=== PATIENT | female | born 1950 | race Caucasian/White ===

== ENCOUNTER 2018-10-22 08:34 | Day surgery (SDC) | payer MEDICARE, OTHER ==
[~2018-10-22 08:34] MED LIST: Lactated Ringers 1,000 ML IV SCH
[2018-10-22] MEDS ORDERED: Propofol 200 MG/20 ML SDV ONE ×2 (09:43→10:04)
[2018-10-22] MEDS ORDERED: fentaNYL 100 MCG/2 ML SDV ONE (09:43)
--- NOTE | 2018-10-22 11:47 | OR ---
PREOPERATIVE DIAGNOSIS: Left lower quadrant pain and probable colitis. POSTOPERATIVE DIAGNOSIS: Left lower quadrant pain and probable colitis. PROCEDURE PERFORMED: Colonoscopy. INDICATION: The patient is a 68-year-old female with history of left lower quadrant pain and symptoms of colitis. She had a CT scan earlier, which showed evidence of some colitis, presents for colonoscopy for further evaluation. PROCEDURE IN DETAIL: This was done in the endoscopy suite. Sedation was given per Anesthesia. She was placed in left lateral position. First, a rectal exam was done, was normal. Scope was introduced into the rectum and slowly advanced to the rectum, sigmoid, descending, transverse, and ascending colon until the cecum was reached. Upon reaching the cecum, scope was slowly withdrawn looking all mucosal surfaces on the way out. No mucosal abnormalities, lesions, or polyps were noted. FINAL DIAGNOSIS: Normal colonoscopy. BKD: 10/22/2018 10:49:13 MODL: 10/22/2018 11:41:28 /[id number]
== END 2018-10-22 14:00 | disposition home or self-care (01) ==
LOC: VM.SDS 08:34
PROVIDERS: ATTEND Surgery
DX: R10.32 Left lower quadrant pain (principal); E66.01 Morbid (severe) obesity due to excess calories; Z68.39 Body mass index [BMI] 39.0-39.9, adult; K21.9 Gastro-esophageal reflux disease without esophagitis; Z79.899 Other long term (current) drug therapy; Z88.8 Allergy status to other drugs, medicaments and biological substances
CPT/HCPCS: 00812; 82962; J2704; J3010; J7120

== ENCOUNTER 2019-01-19 17:21 | Emergency (ER) | payer MEDICARE, OTHER ==
[2019-01-19] MEDS ORDERED: cloNIDine 0.1 MG Tab PO ONE (17:47)
[2019-01-19] MEDS ORDERED: Sodium Chloride 0.9% 1,000 ML IV ONE (17:47)
--- NOTE | 2019-01-19 17:50 | EDM.PDOC ---
ED HPI GENERAL MEDICAL PROBLEM - General Chief Complaint: General Stated Complaint: BLOOD PRESSURE ISSUES Time Seen by Provider: 01/19/19 17:35 Source of Information: Reports: Patient, RN History Limitations: Reports: No Limitations - History of Present Illness INITIAL COMMENTS - FREE TEXT/NARRATIVE: Patient comes in the emergency department with complaint of hypertension. Patient states that she has had an increase in blood pressure over the course the last 3-4 days. She had a nerve block conducted on on her lower back in 6 different spots. She states since then she's had a headache and issues with her blood pressure. She states "I just don't feel". Proximal a month ago she had stopped her metformin for was causing significant diarrhea. She is to follow-up with her v belt builder for further management however that appointment was canceled and she is still waiting to get back in to see her. She is also concerned that her blood sugar may be elevated. The patient's blood pressure normally runs systolically in the 120s systolically in the 60s Onset: Gradual Severity: Mild Improves with: Reports: None Worsens with: Reports: None Associated Symptoms: Reports: Headaches, Loss of Appetite, Malaise Headache Pain Score (Numeric/FACES): 7 - Related Data Allergies Allergy/AdvReac Type Severity Reaction Status Date / Time droperidol Allergy Anxiety Verified 01/19/19 17:40 metoclopramide [From Reglan] Allergy Anxiety Verified 01/19/19 17:40 phenoxybenzamine Allergy Anaphylactic Verified 01/19/19 17:40 [From Dibenzyline] Shock verapamil Allergy Other Verified 01/19/19 17:40 Home Meds: Home Meds Estradiol [Estrace] 0.5 mg PO DAILY 10/18/18 [History] Nitroglycerin [Nitrostat] 0.4 mg SL ASDIRECTED 10/18/18 [History] Cholecalciferol (Vitamin D3) [D-1999] 2,000 unit PO TID 01/19/19 [History] Cholestyramine/Sucrose [Cholestyramine Packet] 4 gm PO TID 01/19/19 [History] Dicyclomine [Bentyl] 10 mg PO TID 01/19/19 [History] L.acidoph,Paracasei, B.lactis [Probiotic] 1 each PO DAILY 01/19/19 [History] Past Medical History HEENT History: Reports: None Cardiovascular History: Reports: Heart Murmur, Other (See Below) Other Cardiovascular History: HX SVT Gastrointestinal History: Reports: Colon Polyp, GERD 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 haglunds deformity of right heel Neurological History: Reports: None Psychiatric History: Reports: None Endocrine/Metabolic History: Reports: Other (See Below) Other Endocrine/Metabolic History: PRE DIABETES - Past Surgical History HEENT Surgical History: Reports: None Cardiovascular Surgical History: Reports: Other (See Below) Other Cardiovascular Surgeries/Procedures: HEART ABLATIONS X 2 SURGERIES. BORN WITHOUT INFERIOR VENA CAVA GI Surgical History: Reports: Appendectomy, Cholecystectomy, Colonoscopy, Karime Fundoplication Female Surgical History: Reports: Section, Hysterectomy ED ROS GENERAL - Review of Systems Review Of Systems: See Below Constitutional: Reports: Malaise, Fatigue HEENT: Reports: No Symptoms Respiratory: Reports: No Symptoms Cardiovascular: Reports: No Symptoms Endocrine: Reports: No Symptoms GI/Abdominal: Reports: No Symptoms : Reports: No Symptoms Musculoskeletal: Reports: No Symptoms Skin: Reports: No Symptoms Neurological: Reports: No Symptoms Psychiatric: Reports: No Symptoms ED EXAM, GENERAL - Physical Exam Exam: See Below Exam Limited By: No Limitations General Appearance: Alert, WD/WN, No Apparent Distress Eye Exam: Bilateral Eye: EOMI, PERRL Head: Atraumatic, Normocephalic Neck: Normal Inspection, Supple, Non-Tender, Full Range of Motion Respiratory/Chest: No Respiratory Distress, Lungs Clear, Normal Breath Sounds, No Accessory Muscle Use, Chest Non-Tender Cardiovascular: Normal Peripheral Pulses, Regular Rate, Rhythm Back Exam: Normal Inspection, Full Range of Motion Extremities: Normal Inspection, Normal Range of Motion, Non-Tender, Normal Capillary Refill Neurological: Alert, Oriented, CN II-XII Intact Psychiatric: Normal Affect, Normal Mood, Anxious Skin Exam: Warm, Dry, Intact, Normal Color Course - Vital Signs Last Recorded V/S: Last Vital Signs Temp 36.6 C 01/19/19 17:30 Pulse 72 01/19/19 18:36 Resp 16 01/19/19 17:55 BP 140/77 01/19/19 19:04 Pulse Ox 98 01/19/19 17:30 - Orders/Labs/Meds Orders: Active Orders 24 hr Category Date Time Status UA RFX KATIE AND CULT IF INDIC [URIN] Stat Lab 01/19/19 19:09 Ordered predniSONE Med 01/19/19 19:34 Once 20 mg PO ONETIME ONE predniSONE [Take Home: predniSONE 20 MG, 2 Tab Pack] Med 01/19/19 19:34 Once 2 packet PO ONETIME ONE Labs: Laboratory Tests 01/19/19 01/19/19 Range/Units 18:10 18:10 WBC 16.0 H (4.0-10.0) x10^3/uL RBC 4.24 (4.00-5.50) x10^6/uL Hgb 12.1 (12.0-16.0) g/dL Hct 37.8 (33.0-47.0) % MCV 89.2 (78.0-93.0) fL MCH 28.5 (26.0-32.0) pg MCHC 32.0 (32.0-36.0) g/dL RDW Coeff of Barbara 14.9 (10.0-15.0) % Plt Count 223 (130-400) x10^3/uL Add Manual Diff Yes Neutrophils % (Manual) 56 (50-80) % Band Neutrophils % 4 (0-6) % Lymphocytes % (Manual) 35 (25-50) % Monocytes % (Manual) 3 (2-11) % Eosinophils % (Manual) 2 (0-4) % Platelet Estimate Adequate Anisocytosis 1+ slight H Sodium 142 (136-145) mmol/L Potassium 4.1 (3.5-5.1) mmol/L Chloride 107 (98-107) mmol/L Carbon Dioxide 22 (21-32) mmol/L Anion Gap 17.1 (10-20) mmol/L BUN 22 H (7-18) mg/dL Creatinine 0.8 (0.55-1.02) mg/dL Est Cr Clr Drug Dosing 68.52 mL/min Estimated GFR (MDRD) > 60 Glucose 134 H (74-106) mg/dL Calcium 9.3 (8.5-10.1) mg/dL Corrected Calcium 9.62 (8.5-10.1) mg/dL Total Bilirubin 0.4 (0.2-1.0) mg/dL AST 11 L (15-37) U/L ALT 19 (14-59) U/L Alkaline Phosphatase 55 (46-116) U/L Creatine Kinase 67 (26-192) U/L Troponin I < 0.017 (<=0.056) ng/mL NT-Pro-B Natriuret Pep 567 H (<=125) pg/mL Total Protein 6.7 (6.4-8.2) g/dL Albumin 3.6 (3.4-5.0) g/dL Globulin 3.1 Albumin/Globulin Ratio 1.16 Meds: Medications Discontinued Medications Generic Name Dose Route Start Last Admin Trade Name Freq PRN Reason Stop Dose Admin Azithromycin 500 mg 01/19/19 19:32 Zithromax PO 01/19/19 19:33 ONETIME ONE Azithromycin 2 packet 01/19/19 19:33 Take Home: Azithromycin 250 Mg, 2 Tab Pack PO 01/19/19 19:34 ONETIME ONE Clonidine HCl 0.1 mg 01/19/19 17:47 01/19/19 18:16 Catapres PO 01/19/19 17:48 0.1 mg ONETIME ONE Administration Hydroxyzine HCl 50 mg 01/19/19 18:56 01/19/19 19:03 Vistaril IM 01/19/19 18:57 50 mg ONETIME ONE Administration Sodium Chloride 1,000 mls @ 1,000 mls/hr 01/19/19 17:47 01/19/19 18:16 Normal Saline IV 01/19/19 18:46 1,000 mls/hr ONETIME ONE Administration Ketorolac Tromethamine 15 mg 01/19/19 17:51 01/19/19 18:16 Toradol IVPUSH 01/19/19 17:52 15 mg ONETIME ONE Administration Departure - Departure Time of Disposition: 19:45 Disposition: Home, Self-Care 01 Clinical Impression: Headache Qualifiers: Headache type: unspecified Headache chronicity pattern: acute headache Intractability: not intractable Qualified Code(s): R51 - Headache Hypertension Qualifiers: Hypertension type: unspecified Qualified Code(s): I10 - Essential (primary) hypertension Pneumonia Qualifiers: Pneumonia type: due to unspecified organism Laterality: left Lung location: lower lobe of lung Qualified Code(s): J18.1 - Lobar pneumonia, unspecified organism - Discharge Information *PRESCRIPTION DRUG MONITORING PROGRAM REVIEWED*: Not Applicable *COPY OF PRESCRIPTION DRUG MONITORING REPORT IN PATIENT JASPER: Not Applicable Instructions: Preventing Hypertension, Community-Acquired Pneumonia, Adult, [id number], Azithromycin tablets, Prednisone tablets, Probiotics Forms: ED Department Discharge Additional Instructions: 1. rest 2. Activity and diet as tolerated 3. take medication as prescribed 4. Take a probiotic while on the medications to help promote GI health 5. Follow up as needed if not better in a week 6. Continue to exercise to help promote good cardiac health 7. Call with any questions or concerns - My Orders Last 24 Hours: My Active Orders 01/19/19 19:09 UA RFX KATIE AND CULT IF INDIC [URIN] Stat 01/19/19 19:34 predniSONE 20 mg PO ONETIME ONE predniSONE [Take Home: predniSONE 20 MG, 2 Tab Pack] 2 packet PO ONETIME ONE - Assessment/Plan Last 24 Hours: My Active Orders 01/19/19 19:09 UA RFX KATIE AND CULT IF INDIC [URIN] Stat 01/19/19 19:34 predniSONE 20 mg PO ONETIME ONE predniSONE [Take Home: predniSONE 20 MG, 2 Tab Pack] 2 packet PO ONETIME ONE Assessment:: 1. hypertension 2. headache Plan: 1. Labs completed in the ER. Results reviewed with patient 2. EKG completed in the ER results reviewed with the patient 3. X-ray completed in the ER results reviewed with patient 4. IV started with IV hydration to help with the headache 5. Clonidine provided to help with anxiety and hypertension 6. Toradol given for pain 7. Azithromycin and prednisone given for elevated white count and atelectasis 8. take home medications sent with the patient. 9. Education provided regarding education, activity, diet, and follow up. 10. All questions answered prior to discharge
[2019-01-19] MEDS ORDERED: Ketorolac 15 MG/ML SDV IVPUSH ONE (17:51)
--- NOTE | 2019-01-19 18:38 | CR ---
[id number] RAD/RAD Chest PA or AP 1V EXAM: RAD Chest PA or AP 1V INDICATION: HYPERTENSION. COMPARISON: None. DISCUSSION: Cardiomediastinal silhouette is normal in size and contour. No infiltrate, effusion, pneumothorax, or edema. Left basilar subsegmental atelectasis. IMPRESSION: Left basilar subsegmental atelectasis. Otherwise, no acute cardiopulmonary findings. Dwain Lamb DO 01/19/19 [id number] Thank you for allowing us to participate in the care of your patient.
[2019-01-19 18:47] LABS: CHLORIDE,CL 107 mmol/L (98-107); SODIUM,NA 142 mmol/L (136-145)
[2019-01-19 18:50] LABS: ANION GAP 17.1 mmol/L (10-20)
[2019-01-19] MEDS ORDERED: hydrOXYzine HCl 50 MG/ML SDV IM ONE (18:56)
[2019-01-19] MEDS ORDERED: Azithromycin 250 MG Tab PO ONE (19:32)
[2019-01-19] MEDS ORDERED: Take Home: Azithromycin 250 MG, 2 Tab Pack PO ONE (19:33)
[2019-01-19] MEDS ORDERED: Take Home: predniSONE 20 MG, 2 Tab Pack PO ONE (19:34)
[2019-01-19] MEDS ORDERED: predniSONE 20 MG Tab PO ONE (19:34)
== END 2019-01-19 20:15 | disposition home or self-care (01) ==
LOC: VM.ED 17:21
DX: J18.1 Lobar pneumonia, unspecified organism (principal); K21.9 Gastro-esophageal reflux disease without esophagitis; I10 Essential (primary) hypertension; R51 Headache; Z88.8 Allergy status to other drugs, medicaments and biological substances; Z79.899 Other long term (current) drug therapy
CPT/HCPCS: 36415; 71045; 80053; 81003; 82550; 83880; 84484; 85025; 96365; 96366; 96372; 96375; 99283; A9270; J1885; J3410; J7030

== ENCOUNTER 2019-01-25 21:50 | Emergency (ER) | payer MEDICARE, OTHER ==
[2019-01-25] MEDS ORDERED: Sodium Chloride 0.9% 10 ML Syringe FLUSH PRN (22:02)
[2019-01-25] MEDS ORDERED: Aspirin 81 MG Tab.Chew PO ONE (22:02)
[2019-01-25] MEDS ORDERED: Sodium Chloride 0.9% 1,000 ML IV SCH (22:15)
[2019-01-25 23:28] LABS: CHLORIDE,CL 103 mmol/L (98-107); SODIUM,NA 141 mmol/L (136-145)
[2019-01-25 23:30] LABS: ANION GAP 16.4 mmol/L (10-20)
--- NOTE | 2019-01-26 00:43 | EDM.PDOC ---
ED HPI GENERAL MEDICAL PROBLEM - General Chief Complaint: Cardiovascular Problem Stated Complaint: CHEST PAIN Time Seen by Provider: 01/25/19 22:00 Source of Information: Reports: Patient History Limitations: Reports: No Limitations - History of Present Illness INITIAL COMMENTS - FREE TEXT/NARRATIVE: Patient comes in with complaints of centralized chest pain with no radiation. Denies any pain, numbness, or tingling to her shoulders, arms, or hands. Does endorse some neck pain. Describes pain as excruciating pressure to her central chest then a stabbing pain. She also describes she felt like her throat/neck was closing. She did try Tums at home, as well as 3 nitro which did help. She does deny current chest pain. She does appear anxious. She does have history of 2 ablations stating she used to get V-Tach runs. Given a nerve block for lower back pain 01/17/19. Does also report more SOB with activity. This she describes as a fairly new and recent development. Denies recent illness. No headache, abdominal pain, no nausea, vomiting. Does have chronic diarrhea. Was seen last week for a headache and blood pressure was quite elevated.. Did follow up with primary and started on medication. Onset: Today, Sudden Duration: Resolved Prior to Arrival Location: Reports: Neck, Chest Quality: Reports: Pressure Severity: Moderate Improves with: Reports: Medication Associated Symptoms: Reports: Chest Pain, Shortness of Breath - Related Data Allergies Allergy/AdvReac Type Severity Reaction Status Date / Time droperidol Allergy Anxiety Verified 01/19/19 17:40 metoclopramide [From Reglan] Allergy Anxiety Verified 01/19/19 17:40 phenoxybenzamine Allergy Anaphylactic Verified 01/19/19 17:40 [From Dibenzyline] Shock verapamil Allergy Other Verified 01/19/19 17:40 Home Meds: Home Meds Estradiol [Estrace] 0.5 mg PO DAILY 10/18/18 [History] Nitroglycerin [Nitrostat] 0.4 mg SL ASDIRECTED 10/18/18 [History] Cholecalciferol (Vitamin D3) [D-2000] 2,000 unit PO TID 01/19/19 [History] Cholestyramine/Sucrose [Cholestyramine Packet] 4 gm PO TID 01/19/19 [History] Dicyclomine [Bentyl] 10 mg PO TID 01/19/19 [History] L.acidoph,Paracasei, B.lactis [Probiotic] 1 each PO DAILY 01/19/19 [History] Past Medical History HEENT History: Reports: None Cardiovascular History: Reports: Heart Murmur, Other (See Below) Other Cardiovascular History: HX SVT Gastrointestinal History: Reports: Colon Polyp, GERD 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 haglunds deformity of right heel Neurological History: Reports: None Psychiatric History: Reports: None Endocrine/Metabolic History: Reports: Other (See Below) Other Endocrine/Metabolic History: PRE DIABETES - Past Surgical History HEENT Surgical History: Reports: None Cardiovascular Surgical History: Reports: Other (See Below) Other Cardiovascular Surgeries/Procedures: HEART ABLATIONS X 2 SURGERIES. BORN WITHOUT INFERIOR VENA CAVA GI Surgical History: Reports: Appendectomy, Cholecystectomy, Colonoscopy, Karime Fundoplication Female Surgical History: Reports: Section, Hysterectomy ED ROS GENERAL - Review of Systems Review Of Systems: See Below Constitutional: Reports: No Symptoms HEENT: Reports: No Symptoms Respiratory: Reports: Shortness of Breath Cardiovascular: Reports: Chest Pain Endocrine: Reports: No Symptoms GI/Abdominal: Reports: No Symptoms : Reports: No Symptoms Musculoskeletal: Reports: Neck Pain, Back Pain Skin: Reports: No Symptoms Neurological: Reports: No Symptoms Psychiatric: Reports: No Symptoms Hematologic/Lymphatic: Reports: No Symptoms Immunologic: Reports: No Symptoms ED EXAM, GENERAL - Physical Exam Exam: See Below Exam Limited By: No Limitations General Appearance: Alert, WD/WN, Anxious Eye Exam: Bilateral Eye: EOMI, Normal Inspection Ears: Normal TMs Nose: Normal Inspection, Normal Mucosa, No Blood Throat/Mouth: Normal Inspection, Normal Lips, Normal Teeth, Normal Gums, Normal Oropharynx, Normal Voice, No Airway Compromise Head: Atraumatic, Normocephalic Neck: Normal Inspection, Supple, Non-Tender, Full Range of Motion Respiratory/Chest: No Respiratory Distress, Lungs Clear, Normal Breath Sounds, No Accessory Muscle Use, Chest Non-Tender Cardiovascular: Normal Peripheral Pulses, Regular Rate, Rhythm, No Edema, No Gallop, No JVD, No Murmur, No Rub GI/Abdominal: Normal Bowel Sounds, Soft, Non-Tender, No Organomegaly, No Distention, No Abnormal Bruit, No Mass Back Exam: Normal Inspection, Full Range of Motion, NT Extremities: Normal Inspection, Normal Range of Motion, Non-Tender, Normal Capillary Refill, No Pedal Edema Neurological: Alert, Oriented, CN II-XII Intact, Normal Cognition, Normal Gait, Normal Reflexes, No Motor/Sensory Deficits Psychiatric: Normal Affect, Anxious Skin Exam: Warm, Dry, Intact, Normal Color, No Rash Lymphatic: No Adenopathy Departure - Departure Time of Disposition: 01:01 Disposition: Home, Self-Care 01 Condition: Fair Clinical Impression: Urinary tract infection Instructions: Angina Pectoris, [id number], Nonspecific Chest Pain, Easy-to- Read, Urinary Tract Infection, Adult, [id number] Forms: ED Department Discharge Additional Instructions: Plan 1. Return in the AM for a repeat Troponin level. 2. I also think you should schedule follow up with your manager psychology as soon as possible. 3. Take the full course of macrobid even if feeling better. 4. Follow up with primary doctor as needed for additional symptom management 5. Please call if you have any further questions or concerns. - Problem List & Annotations (1) Chest pain SNOMED Code(s): 50935349 Code(s): R07.9 - CHEST PAIN, UNSPECIFIED Status: Acute Current Visit: Yes Qualifiers: Chest pain type: other chest pain Qualified Code(s): R07.89 - Other chest pain; R07.8 - Other chest pain (2) Microvascular angina SNOMED Code(s): 533433135 Code(s): I20.8 - OTHER FORMS OF ANGINA PECTORIS Status: Acute Priority: Medium Current Visit: Yes - Problem List Review Problem List Initiated/Reviewed/Updated: Yes - Assessment/Plan Assessment:: Cystitis Angina Plan: Plan 1. Return in the AM for a repeat Troponin level. 2. I also think you should schedule follow up with your manager psychology as soon as possible. 3. Take the full course of macrobid even if feeling better. 4. Follow up with primary doctor as needed for additional symptom management 5. Please call if you have any further questions or concerns.
[2019-01-26] MEDS ORDERED: Nitrofurantoin Monohydrate/Macrocrystalline 100 MG Cap PO ONE (00:55)
--- NOTE | 2019-01-26 11:21 | CR ---
[id number] RAD/RAD Chest PA And Lateral EXAM: RAD Chest PA And Lateral CLINICAL DATA: CHEST PAIN COMPARISON: CORRELATION IS MADE WITH THE EXAM OF JANUARY 19, 2019. FINDINGS: The lungs are clear. The cardiomediastinal contour is enlarged but stable. The regional bones and soft tissues are unremarkable. IMPRESSION: NO ACUTE PROCESS. Garry Velasquez MD 01/26/19 1120 Thank you for allowing us to participate in the care of your patient.
== END 2019-01-26 01:00 | disposition home or self-care (01) ==
LOC: VM.ED 21:50
DX: N30.90 Cystitis, unspecified without hematuria (principal); I20.9 Angina pectoris, unspecified; Z88.8 Allergy status to other drugs, medicaments and biological substances; Z79.899 Other long term (current) drug therapy
CPT/HCPCS: 36415; 71046; 80053; 81001; 82550; 83735; 83880; 84100; 84443; 84484; 85025; 85379; 85610; 87086; 87088; 87186; 93005; 99285; A9270; 99284-GF

== ENCOUNTER 2020-09-14 17:16 | Emergency (ER) | payer MEDICARE, OTHER ==
--- NOTE | 2020-09-14 17:40 | EDM.PDOC ---
ED HPI GENERAL MEDICAL PROBLEM - General Time Seen by Provider: 09/14/20 17:39 Source of Information: Reports: Patient, RN, RN Notes Reviewed History Limitations: Reports: No Limitations - History of Present Illness INITIAL COMMENTS - FREE TEXT/NARRATIVE: Pt presents to ER with c/o right foot/ankle pain. Patient states she was walking on a sidewalk talking to her daughter on the phone when her foot caught on a rug outside the pharmacy. Patient states she had a right Achilles tendon repair 2 years ago. She states earlier this week she thought she was having some pain in that area, but that resolved. Patient states today she did not fall to the ground, but twisted the ankle/foot and states all her weight was on it. Patient rates the pain 04/24. Onset: Today, Sudden Duration: Constant Location: Reports: Lower Extremity, Right Quality: Reports: Throbbing Severity: Moderate Improves with: Reports: Immobilization, Rest Worsens with: Reports: Movement Associated Symptoms: Reports: No Other Symptoms - Related Data Allergies Allergy/AdvReac Type Severity Reaction Status Date / Time droperidol Allergy Anxiety Verified 09/14/20 19:12 metoclopramide [From Reglan] Allergy Anxiety Verified 09/14/20 19:12 phenoxybenzamine Allergy Anaphylactic Verified 09/14/20 19:12 [From Dibenzyline] Shock verapamil Allergy Other Verified 09/14/20 19:12 Home Meds: Home Meds Nitroglycerin [Nitrostat] 0.4 mg SL ASDIRECTED 10/18/18 [History] estradioL [Estrace] 1 mg PO DAILY 10/18/18 [History] Cholecalciferol (Vitamin D3) [D-2000] 6,000 unit PO DAILY 01/19/19 [History] Apixaban [Eliquis] 5 mg PO BID 09/14/20 [History] Choline Bit/Aa 10/Trav/Eynt382 [Theramine Capsule] 1 each PO BID 09/14/20 [History] Flecainide [Tambocor] 100 mg PO Q12H 09/14/20 [History] Furosemide 40 mg PO BID 09/14/20 [History] Isosorbide Dinitrate [Isordil] 10 mg PO DAILY 09/14/20 [History] Ketoconazole [Ketoconazole 2%] 1 applic TOP BID PRN 11/30/20 [History] L.acidoph,Paracasei, B.lactis [Probiotic] 1 each PO DAILY 09/14/20 [History] Losartan [Cozaar] 50 mg PO DAILY 09/14/20 [History] Omeprazole 20 mg PO DAILY 09/14/20 [History] Potassium Chloride 20 meq PO DAILY 09/14/20 [History] dilTIAZem HCL [Diltiazem 24Hr Cd] 180 mg PO DAILY 09/14/20 [History] diphenhydrAMINE HCL [Benadryl Allergy] 25 mg PO BEDTIME PRN 09/14/20 [History] metFORMIN HCl [Metformin HCl ER] 500 mg PO DAILY 09/14/20 [History] Past Medical History HEENT History: Reports: None Cardiovascular History: Reports: Heart Murmur, Other (See Below) Other Cardiovascular History: HX SVT Gastrointestinal History: Reports: Colon Polyp, GERD 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 haglunds deformity of right heel Neurological History: Reports: None Psychiatric History: Reports: None Endocrine/Metabolic History: Reports: Other (See Below) Other Endocrine/Metabolic History: PRE DIABETES - Past Surgical History HEENT Surgical History: Reports: None Cardiovascular Surgical History: Reports: Other (See Below) Other Cardiovascular Surgeries/Procedures: HEART ABLATIONS X 2 SURGERIES. BORN WITHOUT INFERIOR VENA CAVA GI Surgical History: Reports: Appendectomy, Cholecystectomy, Colonoscopy, Karime Fundoplication Female Surgical History: Reports: Section, Hysterectomy Review of Systems - Review of Systems Review Of Systems: Comprehensive ROS is negative, except as noted in HPI. ED EXAM, GENERAL - Physical Exam Exam: See Below Exam Limited By: No Limitations General Appearance: Alert, WD/WN, Moderate Distress Eye Exam: Bilateral Eye: EOMI, Normal Inspection Ears: Normal External Exam, Hearing Grossly Normal Nose: Normal Inspection Throat/Mouth: Normal Inspection, Normal Voice, No Airway Compromise Head: Atraumatic, Normocephalic Neck: Normal Inspection, Supple, Non-Tender, Full Range of Motion Respiratory/Chest: No Respiratory Distress, Lungs Clear, Normal Breath Sounds, No Accessory Muscle Use, Chest Non-Tender Cardiovascular: Normal Peripheral Pulses, Regular Rate, Rhythm, No Edema, No Gallop, No JVD, No Murmur, No Rub Peripheral Pulses: 2+: Radial (L), Radial (R), Dorsalis Pedis (L), Dorsalis Pedis (R) GI/Abdominal: Normal Bowel Sounds, Soft, Non-Tender (Female) Exam: Deferred Rectal (Female) Exam: Deferred Back Exam: Normal Inspection, Full Range of Motion, NT Extremities: Joint Swelling (Right ankle/foot), Leg Pain (right ankle/foot), Limited Range of Motion (right ankle/foot) Neurological: Alert, Oriented, CN II-XII Intact, Normal Cognition, Normal Reflexes, No Motor/Sensory Deficits Psychiatric: Normal Affect, Normal Mood Skin Exam: Warm, Dry, Intact, Normal Color, No Rash Lymphatic: No Adenopathy Course - Orders/Labs/Meds Orders: Active Orders 24 hr Category Date Time Status Foot Comp Min 3V Rt [CR] Stat Exams 09/14/20 17:37 Taken Meds: Medications Discontinued Medications Generic Name Dose Route Start Last Admin Trade Name Freq PRN Reason Stop Dose Admin Hydromorphone HCl 0.5 mg 09/14/20 19:26 Dilaudid IM 09/14/20 19:27 ONETIME ONE - Radiology Interpretation Free Text/Narrative:: Right ankle xray/foot xray: 1. Tiny age-indeterminate avulsion fracture of the top of the fibula 2. Diffuse soft tissue swelling See rad report - Re-Assessments/Exams Free Text/Narrative Re-Assessment/Exam: 09/14/20 19:55 Called [facility]. They have an ortho walk in clinic Monday through Monday on the 1st floor where the ortho clinic is. Patient encouraged to go there the end of this week. Departure - Departure Time of Disposition: 19:56 Disposition: Home, Self-Care 01 Condition: Fair Clinical Impression: Avulsion fracture of distal end of fibula - Discharge Information *PRESCRIPTION DRUG MONITORING PROGRAM REVIEWED*: No *COPY OF PRESCRIPTION DRUG MONITORING REPORT IN PATIENT JASPER: No Instructions: Nondisplaced Fibular Ankle Fracture Treated With Immobilization, Adult, Cast or Splint Care, Adult, [id number] Referrals: PCP,Unobtain [Primary Care Provider] - Additional Instructions: Elevate, ice, rest Keep area clean and dry The end of this week, go to [facility] orthopedics Walk in CLinic regarding the possible avulsion fracture and follow up This is located on the 1st floor where the ortho clinic is May use Tylenol and/or Ibuprofen as directed for pain - My Orders Last 24 Hours: My Active Orders 09/14/20 17:37 Foot Comp Min 3V Rt [CR] Stat - Assessment/Plan Last 24 Hours: My Active Orders 09/14/20 17:37 Foot Comp Min 3V Rt [CR] Stat
--- NOTE | 2020-09-14 18:27 | CR ---
[id number] RAD/RAD Ankle Right 3V Min; [id number] RAD/RAD Foot Right 3V Min EXAM: RAD Foot Right 3V Min, RAD Ankle Right 3V Min INDICATION: Injury with pain. COMPARISON: None. DISCUSSION: Type II os navicular. Mild to moderate scattered degenerative changes. Diffuse soft tissue swelling. Tiny age-indeterminate avulsion fracture off the tip of the distal fibula. No other fracture. Symmetric ankle mortise. IMPRESSION: 1. Tiny age-indeterminate avulsion fracture off the tip of the fibula. 2. Diffuse soft tissue swelling. Ryan Higginbotham MD 09/14/20 [id number] Thank you for allowing us to participate in the care of your patient.
[2020-09-14] MEDS ORDERED: HYDROmorphone 0.5 MG/0.5 ML Syringe IM ONE (19:26)
== END 2020-09-14 20:05 | disposition home or self-care (01) ==
LOC: VM.ED 17:16
DX: S82.831A Other fracture of upper and lower end of right fibula, initial encounter for closed fracture (principal); K21.9 Gastro-esophageal reflux disease without esophagitis; Z88.8 Allergy status to other drugs, medicaments and biological substances; Z79.01 Long term (current) use of anticoagulants; Z79.84 Long term (current) use of oral hypoglycemic drugs; Z79.899 Other long term (current) drug therapy; W23.0XXA Caught, crushed, jammed, or pinched between moving objects, initial encounter
CPT/HCPCS: 29515; 73610; 73630; 96372; 99283; J1170

== ENCOUNTER 2022-02-13 03:34 | Emergency (ER) | payer MEDICARE, OTHER ==
[2022-02-13 04:33] LABS: CHLORIDE,CL 100 mmol/L (98-107); SODIUM,NA 138 mmol/L (136-145)
[2022-02-13 04:34] LABS: ANION GAP 15.6 mmol/L (5-15)
== END 2022-02-13 04:50 | disposition home or self-care (01) ==
LOC: VM.ED 03:34
DX: I48.0 Paroxysmal atrial fibrillation (principal); K21.9 Gastro-esophageal reflux disease without esophagitis; Z90.49 Acquired absence of other specified parts of digestive tract; Z88.8 Allergy status to other drugs, medicaments and biological substances; Z88.1 Allergy status to other antibiotic agents; Z79.84 Long term (current) use of oral hypoglycemic drugs; Z79.899 Other long term (current) drug therapy; Z79.01 Long term (current) use of anticoagulants
CPT/HCPCS: 71046; 80053; 82550; 83615; 83880; 84484; 85025; 93005; 93010; 99284; 99285-25

== ENCOUNTER 2024-03-30 15:15 | Emergency (ER) | payer MEDICARE, OTHER ==
[2024-03-30] MEDS: Aspirin 81 MG Tab.Chew PO ONE (15:20)
[2024-03-30 15:43] LABS: BASOPHILS PERCENT AUTO 0.5 % (0.2-1.2); EOSINOPHILS ABSOLUTE AUTO 0.1 x10^3/uL (0.0-0.5); EOSINOPHILS PERCENT AUTO 1.3 % (0.0-4.0); HEMATOCRIT 38.6 % (33.0-47.0); HEMOGLOBIN 13.2 g/dL (12.0-16.0); IMMATURE GRAN ABSOLUTE AUTO 0.01 x10^3/uL (0.00-0.07); LYMPHOCYTES ABSOLUTE AUTO 1.4 x10^3/uL (1.0-4.8); MEAN CORPUSCULAR HEMOGLOBIN 30.6 pg (26.0-32.0); MEAN CORPUSCULAR HGB CONC 34.2 g/dL (32.0-36.0); MEAN CORPUSCULAR VOLUME 89.4 fL (78.0-93.0); MONOCYTES ABSOLUTE AUTO 0.6 x10^3/uL (0.0-0.8); MONOCYTES PERCENT AUTO 9.1 % (2.0-11.0); NEUTROPHILS ABSOLUTE AUTO 4.1 x10^3/uL (1.8-7.7); NEUTROPHILS PERCENT AUTO 66.9 % (50.0-80.0); PLATELET COUNT,PLT 188 x10^3/uL (130-400); RED BLOOD CELL COUNT 4.32 x10^6/uL (4.00-5.50); WHITE BLOOD CELL COUNT,WBC 6.2 x10^3/uL (4.0-10.0)
[2024-03-30 16:05] LABS: A/G RATIO 0.97; ALANINE AMINOTRANSFERASE,ALT 20 U/L (14-59); ALBUMIN 3.6 g/dL (3.4-5.0); ALKALINE PHOSPHATASE 62 U/L (46-116); ANION GAP 17.9 mmol/L (5-15); ASPARTATE AMNIOTRANSFERASE,AST 14 U/L (15-37); BILIRUBIN TOTAL 0.5 mg/dL (0.2-1.0); BLOOD UREA NITROGEN,BUN 27 mg/dL (7-18); CALCIUM 9.2 mg/dL (8.5-10.1); CARBON DIOXIDE,CO2 25 mmol/L (21-32); CHLORIDE,CL 103 mmol/L (98-107); CREATININE 1.8 mg/dL (0.55-1.02); ESTIMATED GFR 30 mL/min (>=60); GLUCOSE RANDOM 149 mg/dL (70-99); POTASSIUM,K 3.9 mmol/L (3.5-5.1); PROTEIN TOTAL,TP 7.3 g/dL (6.4-8.2); SODIUM,NA 142 mmol/L (136-145)
[2024-03-30 16:16] LABS: APPEARANCE,URINE CLEAR (CLEAR); BILIRUBIN,URINE NEGATIVE (NEGATIVE); COLOR,URINE YELLOW (YELLOW); GLUCOSE,URINE NEGATIVE (NEGATIVE); KETONES,URINE NEGATIVE (NEGATIVE); LEUKOCYTE ESTERASE,URINE NEGATIVE (NEGATIVE); NITRITE,URINE NEGATIVE (NEGATIVE); OCCULT BLOOD,URINE NEGATIVE (NEGATIVE); PH,URINE 5.5 (5.0-8.0); PROTEIN,URINE NEGATIVE (NEGATIVE); UROBILINOGEN,URINE 0.2 EU/dL (0.2)
[2024-03-30] MEDS: Morphine 2 MG/ML SYRINGE IVPUSH ONE (16:52)
== END 2024-03-30 21:16 | disposition home or self-care (01) ==
LOC: VM.ED 15:15
DX: I20.0 Unstable angina (principal); I48.91 Unspecified atrial fibrillation; Z79.01 Long term (current) use of anticoagulants
CPT/HCPCS: 36415; 71045; 80053; 81003; 84484; 85025; 93005; 96374; 99285; A9270; J2270